=== PATIENT | female | born 1945 | race Caucasian/White ===

== ENCOUNTER 2017-10-31 11:41 | Emergency (ER) | payer MEDICARE ==
--- NOTE | 2017-10-31 14:31 | ED ---
General Adult HPI - General Chief complaint: Fall Stated complaint: fall post op, perio office Time Seen by Provider: 10/31/17 12:45 Source: patient, RN notes reviewed Mode of arrival: wheelchair - History of Present Illness Initial comments: This is a 72-year-old female presents emergency Department complaining that she hurt her left elbow and has a headache. Patient's was at dentist's office when she was sedated for procedure. When she got up she wasn't feeling well and she fell forward and hit her elbow and hit her head. There was no loss of consciousness. Patient denies any neck pain patient denies any numbness weakness. Patient states she does have a headache and her elbow hurts a little. Patient states she has full range of motion of the elbow. Patient denies any hand pain and wrist pain shoulder pain or chest pain. Patient denies any back pain. Patient denies any lower extremity pain. - Related Data Home Medications Medication Instructions Recorded Confirmed Amoxicillin 2,000 mg PO ONCE PRN 10/31/17 10/31/17 Diltiazem HCl [Cartia Xt] 240 mg PO DAILY 10/31/17 10/31/17 Ketorolac 0.5% Ophth Soln [Acular] 1 drops BOTH EYES QID 10/31/17 10/31/17 Oxybutynin ER [Ditropan Xl] 15 mg PO DAILY 10/31/17 10/31/17 Pravastatin Sodium [Pravachol] 40 mg PO DAILY 10/31/17 10/31/17 Allergies Allergy/AdvReac Type Severity Reaction Status Date / Time No Known Allergies Allergy Verified 10/31/17 14:38 Review of Systems ROS Statement: Those systems with pertinent positive or pertinent negative responses have been documented in the HPI. ROS Other: All systems not noted in ROS Statement are negative. Past Medical History Past Medical History: Hyperlipidemia, Hypertension History of Any Multi-Drug Resistant Organisms: None Reported Past Surgical History: Hysterectomy Past Psychological History: No Psychological Hx Reported Smoking Status: Current every day smoker Past Alcohol Use History: None Reported Past Drug Use History: None Reported General Exam - General Exam Comments Initial Comments: GENERAL: Patient is well-developed and well-nourished. Patient is nontoxic and well- hydrated and is in mild distress. ENT: Neck is soft and supple. No significant lymphadenopathy is noted. Oropharynx is clear. Moist mucous membranes. Neck has full range of motion without eliciting any pain. Patient has a small superficial abrasion on the forehead. EYES: The sclera were anicteric and conjunctiva were pink and moist. Extraocular movements were intact and pupils were equal round and reactive to light. Eyelids were unremarkable. PULMONARY: Unlabored respirations. Good breath sounds bilaterally. No audible rales rhonchi or wheezing was noted. CARDIOVASCULAR: There is a regular rate and rhythm without any murmurs gallops or rubs. ABDOMEN: Soft and nontender with normal bowel sounds. SKIN: Skin is clear with no lesions or rashes and otherwise unremarkable. NEUROLOGIC: Patient is alert and oriented x3. Cranial nerves II through XII are grossly intact. Motor and sensory are also intact. Normal speech, volume and content. Symmetrical smile. MUSCULOSKELETAL: Normal extremities with adequate strength and full range of motion. Patient has ecchymosis to the lateral aspect of her distal humerus she does have full range of motion at the elbow. LYMPHATICS: No significant lymphadenopathy is noted PSYCHIATRIC: Normal psychiatric evaluation. Course Vital Signs 10/31/17 12:41 Temperature 97.6 F Pulse Rate 75 Respiratory 15 Rate Blood Pressure 130/60 O2 Sat by Pulse 96 Oximetry Medical Decision Making - Medical Decision Making CT of the brain shows no acute abnormality. Elbow x-ray shows no acute abnormality. Patient was able to ambulate. Disposition Clinical Impression: Fall, Head injury, Superficial abrasion, Elbow contusion Disposition: HOME SELF-CARE Condition: Good Instructions: Fall Prevention for Older Adults (ED), Contusion in Adults (ED) Is patient prescribed a controlled substance at d/c from ED?: No Referrals: Javan Woods MD [Primary Care Provider] - 1-2 days Time of Disposition: 15:16
--- NOTE | 2017-10-31 14:49 | CT ---
EXAMINATION TYPE: CT brain wo con DATE OF EXAM: 10/31/2017 COMPARISON: NONE HISTORY: Fall today, left frontal injury. CT DLP: [address] of the brain was performed. The ventricles, basal cisterns and sulci overlying the cerebral convexities demonstrate moderate enla rgement. Remote insult versus a arachnoid cyst right middle cranial fossa measuring 3.6 x 3 cm. There is no evidence for intracranial hemorrhage or sulcal effacement. There is decreased attenuation about the periventricular white matter and deep white matter of both c erebral hemispheres, compatible with chronic small vessel ischemia. Differential diagnosis does inclu de demyelination. No mass effects are seen.No midline shift. Osseous calvarium is intact. If symptoms persist consider MRI. IMPRESSION: 1. Age related atrophic and chronic small vessel ischemic change without acute intracranial process s een at this time.
--- NOTE | 2017-10-31 14:58 | XR ---
Left elbow HISTORY: Trauma and pain 3 views of the left elbow There is a small ossific density at the level of the lateral humeral epicondyles which is well-cortic ated and not felt likely to be acute. Alignment, bone mineralization and joint spaces are maintained. Frontal view is nonstandard. No evident elbow joint effusion. IMPRESSION: No acute fracture or dislocation is evident, follow-up as indicated.
[2017-10-31 15:30] VITALS: BP 141/65; PULSE 77; RESP 18; TEMP 97.9
== END 2017-10-31 15:30 | disposition home or self-care (01) ==
LOC: EC 11:41
DX: S50.02XA Contusion of left elbow, initial encounter (principal); S00.81XA Abrasion of other part of head, initial encounter; I10 Essential (primary) hypertension; E78.5 Hyperlipidemia, unspecified; F17.200 Nicotine dependence, unspecified, uncomplicated; Z79.1 Long term (current) use of non-steroidal anti-inflammatories (NSAID); Z79.899 Other long term (current) drug therapy; W19.XXXA Unspecified fall, initial encounter; Y92.531 Health care provider office as the place of occurrence of the external cause
CPT/HCPCS: 70450; 99284